=== PATIENT | male | born 1950 | race Caucasian/White ===

== ENCOUNTER 2021-05-30 15:16 | Emergency (ER) | payer MEDICARE ==
[~2021-05-30] VITALS: Ht 180.3 cm; Wt 81.2 kg
[2021-05-30] MEDS ORDERED: TIMOLOL MALEATE5 M2 OP (15:57)
[2021-05-30] MEDS ORDERED: ALENDRONATE SOD70 MG PO (15:57)
[2021-05-30] MEDS ORDERED: AUGMENTIN 875-1 EACH PO (18:03)
== END 2021-05-30 18:13 | disposition home or self-care (01) ==
LOC: ED 15:16
DX: L03.213 Periorbital cellulitis (principal); J32.9 Chronic sinusitis, unspecified; Z79.899 Other long term (current) drug therapy
CPT/HCPCS: 70487; 70488; 80048; 85025; 99284-25; J0295; J1885; J7030; Q9967

== ENCOUNTER 2021-08-24 16:30 | Emergency (ER) | payer MEDICARE ==
[~2021-08-24] VITALS: Ht 180.3 cm; Wt 77.5 kg
[~2021-08-24 16:30] MED LIST: ALENDRONATE SOD70 MG PO; AUGMENTIN 875-1 EACH PO; CLARITIN10 M2 PO; HYDROCODON-ACE1 EAC8 PO; TIMOLOL MALEATE5 M2 OP; VENTOLIN HFA18 GM INH
[2021-08-24] MEDS ORDERED: ASPIR-TRIN325 MG PO (16:50)
== END 2021-08-24 21:30 | disposition short-term general hospital (02) ==
LOC: ED 16:30
DX: H05.011 Cellulitis of right orbit (principal); H57.11 Ocular pain, right eye; M19.90 Unspecified osteoarthritis, unspecified site; Z79.899 Other long term (current) drug therapy
CPT/HCPCS: 36415; 70487; 80053; 83605; 85025; 96375; 99285-25; C9803; J1170; J1885; J2405; J2543; J7030; U0003

== ENCOUNTER 2023-03-03 12:26 | Emergency (ER) | payer MEDICARE ==
[~2023-03-03] VITALS: Ht 177.8 cm; Wt 76.7 kg
--- OUTSIDE RECORDS SUMMARY | ~2023-03-03 | XMS | Continuity of Care Document ---
Demographics + + + | Address | [address] | | | [place] [address] | + + + | Preferred Language | Unknown | + + + | Marital Status | | + + + | Yazidism Affiliation | Unknown | + + + | Race | White | + + + | Ethnic Group | Not or | + + + Author + + + | Author | [facility] | + + + | Organization | [facility] | + + + | Address | [address] | | | [place] [address] | + + + | Phone | | + + + Care Team Providers + + + + | Care Vehicle Glass Technician Name | Role | Phone | + + + + Unavailable | Unavailable | + + + + Unavailable | Unavailable | + + + + Unavailable | Unavailable | + + + + Allergies and Intolerances + + + + + + | date | description | facility | reaction | severity | + + + + + + | (no date) | No Known Drug | [facility] | (no reaction) | (no severity) | | | Allergies | | | | + + + + + + Encounters No information. Functional Status No information. Immunizations No information. Medications + + + + | date | description | facility | + + + + | 2022-12-25 00:00 | Timolol Maleate | [facility] | + + + + | 2023-01-23 00:00 | Timolol Maleate | [facility] | + + + + | 2022-12-25 00:00 | ASPIRIN | [facility] | + + + + | 2023-01-23 00:00 | ASPIRIN | [facility] | + + + + | 2021-05-30 00:00 | AMOXICILLIN/POTASSIUM CLAV | [facility] | | | | | + + + + | 2022-12-25 00:00 | LORATADINE | [facility] | + + + + | 2023-01-23 00:00 | LORATADINE | [facility] | + + + + | 2023-01-23 00:00 | | [facility] | | | SULFAMETHOXAZOLE/TRIMETHOPR | | | | IM DS | | + + + + | 2022-12-25 00:00 | HYDROCODONE | [facility] | | | BIT/ACETAMINOPHEN | | + + + + | 2023-01-23 00:00 | HYDROCODONE | [facility] | | | BIT/ACETAMINOPHEN | | + + + + | 2022-12-25 00:00 | ALBUTEROL SULFATE | [facility] | + + + + | 2023-01-23 00:00 | ALBUTEROL SULFATE | [facility] | + + + + | 2022-12-25 00:00 | ALENDRONATE SODIUM | [facility] | + + + + | 2023-01-23 00:00 | ALENDRONATE SODIUM | [facility] | + + + + Problems + + + + | date | description | facility | + + + + | 2021-08-24 00:00 | Cellulitis of right | [facility] | | | orbital region | | + + + + | 2021-08-24 00:00 | Pain in eye | [facility] | + + + + | 2021-08-24 00:00 | Sinusitis | [facility] | + + + + | 2021-08-24 00:00 | Abscess | [facility] | + + + + | 2021-08-25 07:06:08 | Cellulitis of right orbit | [facility] | [facility] | + + + + | 2022-01-18 08:54 | ENCOUNTER FOR CHANGE OR | [facility] | | | REMOVAL OF SURGICAL WOUND | | | | DRESSING | | + + + + | 2022-07-08 08:50 | NON-PRS CHRONIC ULC UNSP | [facility] | | | PRT OF L LOW LEG W UNSP | | | | SEVERITY | | + + + + | 2022-08-05 08:50 | ENCOUNTER FOR CHANGE OR | [facility] | | | REMOVAL OF NONSURG WOUND | | | | DRESSING | | + + + + | 2022-09-02 08:49 | OTHER CHRONIC | [facility] | | | OSTEOMYELITIS, LEFT TIBIA | | | | AND FIBULA | | + + + + | 2022-10-04 08:46 | OTHER CHRONIC | [facility] | | | OSTEOMYELITIS, LEFT TIBIA | | | | AND FIBULA | | + + + + | 2022-11-07 08:52 | OSTEOMYELITIS, UNSPECIFIED | [facility] | | | | | + + + + | 2022-11-07 08:52 | ENCOUNTER FOR CHANGE OR | [facility] | | | REMOVAL OF NONSURG WOUND | | | | DRESSING | | + + + + | 2022-12-06 08:52 | OTHER CHRONIC | [facility] | | | OSTEOMYELITIS, LEFT TIBIA | | | | AND FIBULA | | + + + + | 2022-12-06 08:52 | ENCOUNTER FOR CHANGE OR | [facility] | | | REMOVAL OF NONSURG WOUND | | | | DRESSING | | + + + + | 2022-12-25 00:00 | Encounter for wound | [facility] | | | re-check | | + + + + | 2022-12-25 10:57 | PAIN IN LEFT FOOT | [facility] | + + + + | 2022-12-25 10:57 | UNSPECIFIED OPEN WOUND, | [facility] | | | LEFT FOOT, SUBSEQUENT ENCO | | + + + + | 2022-12-25 10:57 | EXPOSURE TO OTHER | [facility] | | | SPECIFIED FACTORS, | | | | SUBSEQUENT EN | | + + + + | 2022-12-25 10:57 | ENCOUNTER FOR CHANGE OR | [facility] | | | REMOVAL OF SURGICAL WOUND | | + + + + | 2022-12-25 10:57 | GEOPHYSICAL OBSERVER (CURRENT) USE OF | [facility] | | | [facility] | | + + + + | 2023-01-02 16:08 | CHRONIC OSTEOMYELIT W | [facility] | | | DRAINING SINUS, LE | | + + + + | 2023-01-02 16:08 | ENCOUNTER FOR ADJUSTMENT | [facility] | | | AND MANAGEMENT OF VAD | | + + + + | 2023-01-03 07:56 | ENCOUNTER FOR CHANGE OR | [facility] | | | REMOVAL OF NONSURG WOUND | | | | DRESSING | | + + + + | 2023-01-04 07:56 | CHRONIC OSTEOMYELIT W | [facility] | | | DRAINING SINUS, LEFT TIBIA | | | | A | | + + + + | 2023-01-04 07:56 | UNSPECIFIED OPEN WOUND, | [facility] | | | LEFT ANKLE, SUBSEQUENT | | | | ENCOUNTER | | + + + + | 2023-01-05 07:46 | CHRONIC OSTEOMYELIT W | [facility] | | | DRAINING SINUS, LEFT TIBIA | | | | AND FIBULA | | + + + + | 2023-01-06 07:56 | CHRONIC OSTEOMYELIT W | [facility] | | | DRAINING SINUS, LEFT TIBIA | | | | AND FIBULA | | + + + + | 2023-01-07 07:48 | CHRONIC OSTEOMYELIT W | [facility] | | | DRAINING SINUS, LEFT TIBIA | | | | AND FIBULA | | + + + + | 2023-01-08 07:29 | OTHER CHRONIC | [facility] | | | OSTEOMYELITIS, LEFT HAND | | + + + + | 2023-01-09 07:51 | CHRONIC OSTEOMYELIT W | [facility] | | | DRAINING SINUS, LEFT TIBIA | | | | AND FIBULA | | + + + + | 2023-01-10 07:51 | CHRONIC OSTEOMYELIT W | [facility] | | | DRAINING SINUS, LEFT TIBIA | | | | AND FIBULA | | + + + + | 2023-01-11 07:51 | CHRONIC OSTEOMYELIT W | [facility] | | | DRAINING SINUS, LEFT TIBIA | | | | AND FIBULA | | + + + + | 2023-01-12 07:48 | CHRONIC OSTEOMYELIT W | [facility] | | | DRAINING SINUS, LEFT TIBIA | | | | AND FIBULA | | + + + + | 2023-01-13 07:55 | CHRONIC OSTEOMYELIT W | [facility] | | | DRAINING SINUS, LEFT TIBIA | | | | A | | + + + + | 2023-01-13 07:55 | UNSPECIFIED OPEN WOUND, | [facility] | | | LEFT ANKLE, INITIAL | | | | ENCOUNTER | | + + + + | 2023-01-14 07:48 | CHRONIC OSTEOMYELIT W | [facility] | | | DRAINING SINUS, LEFT TIBIA | | | | AND FIBULA | | + + + + | 2023-01-15 07:54 | CHRONIC OSTEOMYELIT W | [facility] | | | DRAINING SINUS, LEFT TIBIA | | | | A | | + + + + | 2023-01-15 07:54 | UNSPECIFIED OPEN WOUND, | [facility] | | | LEFT ANKLE, INITIAL | | | | ENCOUNTER | | + + + + | 2023-01-16 07:51 | CHRONIC OSTEOMYELIT W | [facility] | | | DRAINING SINUS, LEFT TIBIA | | | | AND FIBULA | | + + + + | 2023-01-16 07:51 | UNSPECIFIED OPEN WOUND, | [facility] | | | LEFT ANKLE, INITIAL ENCOUN | | + + + + | 2023-01-17 07:55 | CHRONIC OSTEOMYELIT W | [facility] | | | DRAINING SINUS, LEFT TIBIA | | | | AND FIBULA | | + + + + | 2023-01-17 07:55 | UNSPECIFIED OPEN WOUND, | [facility] | | | LEFT ANKLE, INITIAL ENCOUN | | + + + + | 2023-01-18 07:44 | CHRONIC OSTEOMYELIT W | [facility] | | | DRAINING SINUS, LEFT TIBIA | | | | AND FIBULA | | + + + + | 2023-01-18 07:44 | UNSPECIFIED OPEN WOUND, | [facility] | | | LEFT ANKLE, INITIAL ENCOUN | | + + + + | 2023-01-19 07:50 | CHRONIC OSTEOMYELIT W | [facility] | | | DRAINING SINUS, LEFT TIBIA | | | | AND FIBULA | | + + + + | 2023-01-19 07:50 | UNSPECIFIED OPEN WOUND, | [facility] | | | LEFT ANKLE, INITIAL ENCOUN | | + + + + | 2023-01-20 07:54 | OTHER DISORDERS OF LUNG | [facility] | + + + + | 2023-01-20 07:54 | ENCOUNTER FOR ADJUSTMENT | [facility] | | | [facility]NAG[facility] | | + + + + | 2023-01-21 07:48 | CHRONIC OSTEOMYELIT W | [facility] | | | DRAINING SINUS, LEFT TIBIA | | | | AND FIBULA | | + + + + | 2023-01-22 07:52 | CHRONIC OSTEOMYELIT W | [facility] | | | DRAINING SINUS, LEFT TIBIA | | | | AND FIBULA | | + + + + | 2023-01-23 00:00 | Superficial venous | [facility] | | | thrombosis of upper | | | | extremity | | + + + + | 2023-01-23 00:00 | Cervical radicular pain | [facility] | + + + + | 2023-01-23 00:00 | Interscapular pain | [facility] | + + + + | 2023-01-23 07:48 | CHRONIC OSTEOMYELIT W | [facility] | | | DRAINING SINUS, LEFT TIBIA | | | | AND FIBULA | | + + + + | 2023-01-23 07:48 | UNSPECIFIED OPEN WOUND, | [facility] | | | LEFT ANKLE, INITIAL ENCOUN | | + + + + | 2023-01-23 08:20 | ACUTE EMBOLISM AND THOMBOS | [facility] | | | OF SUPERFIC VEINS OF R | | + + + + | 2023-01-23 08:20 | PAIN IN RIGHT SHOULDER | [facility] | + + + + | 2023-01-23 08:20 | RADICULOPATHY, CERVICAL | [facility] | | | REGION | | + + + + | 2023-01-23 08:20 | OSTEOMYELITIS, UNSPECIFIED | [facility] | | | | | + + + + | 2023-01-23 08:20 | 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 | | + + + + | 2023-01-25 08:00 | CHRONIC OSTEOMYELIT W | [facility] | | | DRAINING SINUS, LEFT TIBIA | | | | AND FIBULA | | + + + + | 2023-01-25 08:00 | UNSPECIFIED OPEN WOUND, | [facility] | | | LEFT ANKLE, INITIAL ENCOUN | | + + + + | 2023-01-27 07:52 | CHRONIC OSTEOMYELIT W | [facility] | | | DRAINING SINUS, LEFT TIBIA | | | | A | | + + + + | 2023-01-27 07:52 | UNSPECIFIED OPEN WOUND, | [facility] | | | LEFT ANKLE, INITIAL | | | | ENCOUNTER | | + + + + | 2023-01-30 07:56 | CHRONIC OSTEOMYELIT W | [facility] | | | DRAINING SINUS, LEFT TIBIA | | | | A | | + + + + | 2023-01-30 07:56 | UNSPECIFIED OPEN WOUND, | [facility] | | | LEFT ANKLE, INITIAL | | | | ENCOUNTER | | + + + + | 2023-02-01 07:48 | CHRONIC OSTEOMYELIT W | [facility] | | | DRAINING SINUS, LEFT TIBIA | | | | AND FIBULA | | + + + + | 2023-02-03 07:51 | CHRONIC OSTEOMYELIT W | [facility] | | | DRAINING SINUS, LEFT TIBIA | | | | A | | + + + + | 2023-02-03 07:51 | UNSPECIFIED OPEN WOUND, | [facility] | | | LEFT ANKLE, SUBSEQUENT | | | | ENCOUNTER | | + + + + | 2023-02-06 07:56 | CHRONIC OSTEOMYELIT W | [facility] | | | DRAINING SINUS, LEFT TIBIA | | | | AND FIBULA | | + + + + | 2023-02-06 07:56 | UNSPECIFIED OPEN WOUND, | [facility] | | | LEFT ANKLE, SUBSEQUENT ENC | | + + + + | 2023-02-08 07:50 | CHRONIC OSTEOMYELIT W | [facility] | | | DRAINING SINUS, LEFT TIBIA | | | | AND FIBULA | | + + + + | 2023-02-10 07:49 | CHRONIC OSTEOMYELIT W | [facility] | | | DRAINING SINUS, LEFT TIBIA | | | | A | | + + + + | 2023-02-10 07:49 | UNSPECIFIED OPEN WOUND, | [facility] | | | LEFT ANKLE, SUBSEQUENT | | | | ENCOUNTER | | + + + + | 2023-02-13 07:48 | CHRONIC OSTEOMYELIT W | [facility] | | | DRAINING SINUS, LEFT TIBIA | | | | AND FIBULA | | + + + + | 2023-02-15 07:52 | CHRONIC OSTEOMYELIT W | [facility] | | | DRAINING SINUS, LEFT TIBIA | | | | AND FIBULA | | + + + + | 2023-02-17 07:49 | CHRONIC OSTEOMYELIT W | [facility] | | | DRAINING SINUS, LEFT TIBIA | | | | AND FIBULA | | + + + + | 2023-02-20 07:54 | CHRONIC OSTEOMYELIT W | [facility] | | | DRAINING SINUS, LEFT TIBIA | | | | A | | + + + + | 2023-02-20 07:54 | UNSPECIFIED OPEN WOUND, | [facility] | | | LEFT ANKLE, INITIAL | | | | ENCOUNTER | | + + + + | 2023-02-24 07:52 | CHRONIC OSTEOMYELIT W | [facility] | | | DRAINING SINUS, LEFT TIBIA | | | | A | | + + + + | 2023-02-24 07:52 | UNSPECIFIED OPEN WOUND, | [facility] | | | LEFT ANKLE, SUBSEQUENT | | | | ENCOUNTER | | + + + + Procedures No information. Results/Labs +--------+--------+ +---------+--------+---------+ | test | date | facility | value | unit | notes | +--------+--------+ +---------+--------+---------+ + + | Result panel 1 | + + + + + +-------+ + + | | 2023-01-05 | [facility] | 8.5 | (missing) | (missing) | | (unavailable [facility] | | | + + + +-------+ + + + + | Result panel 2 | + + + + + + + + + | | 2023-01-05 | [facility] | 01/04/2023 | (missing) | (missing) | | (unavailable | [facility]:07 [facility] | | | | + + + + + + + + + | Result panel 3 | + + + + + +------+ + + | | 2023-01-19 | [facility] | 96 | (missing) | (missing) | | (unavailable | [facility]56[facility]07 [facility] | | | | + + + +------+ + + + + | Result panel 4 | + + + + + +-------+ + + | | 2023-01-23 | [facility] | 8.4 | (missing) | (missing) | | (unavailable | [facility] | | | | + + + +-------+ + + + + | Result panel 5 | + + + + + +--------+ + + | | 2023-01-23 | [facility] | 62.3 | (missing) | (missing) | | (unavailable | [facility] | | | | + + + +--------+ + + + + | Result panel 6 | + + + + + +--------+ + + | | 2023-01-23 | [facility] | 21.8 | (missing) | (missing) | | (unavailable | [facility] | | | | + + + +--------+ + + + + | Result panel 7 | + + + + + +-------+ + + | | 2023-01-23 | [facility] | 9.2 | (missing) | (missing) | | (unavailable | [facility] | | | | + + + +-------+ + + + + | Result panel 8 | + + + + + +-------+ + + | | 2023-01-23 | [facility] | 5.2 | (missing) | (missing) | | (unavailable | [facility] | | | | + + + +-------+ + + + + | Result panel 9 | + + + + + +-------+ + + | | 2023-01-23 | [facility] | 1.5 | (missing) | (missing) | | (unavailable | [facility] | | | + + + +-------+ + + + + | Result panel 10 | + + + + + +------+---------+ + | | 2023-01-23 | [facility] | 84 | mg/dL | (missing) | | (unavailable | [facility] | | | | + + + +------+---------+ + + + | Result panel 11 | + + + + + +------+---------+ + | | 2023-01-23 | [facility] | 11 | mg/dL | (missing) | | (unavailable | [facility] | | | + + + +------+---------+ + + + | Result panel 12 | + + + + + +--------+---------+ + | | 2023-01-23 | [facility] | 0.95 | mg/dL | (missing) | | (unavailable | [facility] | | | | + + + +--------+---------+ + + + | Result panel 13 | + + + + + +------+ + + | | 2023-01-23 | [facility] | 85 | (missing) | (missing) | | (unavailable | [facility] | | | | + + + +------+ + + + + | Result panel 14 | + + + + + +---------+ + + | | 2023-01-23 | [facility] | 11.57 | (missing) | (missing) | | (unavailable | [facility] | | | | + + + +---------+ + + + + | Result panel 15 | + + + + + +--------+ + + | | 2023-01-23 | [facility] | 4.63 | (missing) | (missing) | | (unavailable | [facility] | | | | + + + +--------+ + + + + | Result panel 16 | + + + + + +-------+ + + | | 2023-01-23 | [facility] | 135 | (missing) | (missing) | | (unavailable | [facility] | | | + + + +-------+ + + + + | Result panel 17 | + + + + + +-------+ + + | | 2023-01-23 | [facility] | 3.9 | (missing) | (missing) | | (unavailable | [facility] | | | | + + + +-------+ + + + + | Result panel 18 | + + + + + +-------+ + + | | 2023-01-23 | [facility] | 101 | (missing) | (missing) | | (unavailable | [facility] | | | + + + +-------+ + + + + | Result panel 19 | + + + + + +------+ + + | | 2023-01-23 | [facility] | 29 | (missing) | (missing) | | (unavailable | [facility] | | | | + + + +------+ + + + + | Result panel 20 | + + + + + +-------+ + + | | 2023-01-23 | [facility] | 8.9 | (missing) | (missing) | | (unavailable | [facility] | | | | + + + +-------+ + + + + | Result panel 21 | + + + + + +-------+---------+ + | | 2023-01-23 | [facility] | 8.8 | mg/dL | (missing) | | (unavailable | [facility] | | | | + + + +-------+---------+ + + + | Result panel 22 | + + + + + +-------+ + + | | 2023-01-23 | [facility] | 6.9 | (missing) | (missing) | | (unavailable | [facility] | | | | + + + +-------+ + + + + | Result panel 23 | + + + + + +-------+ + + | | 2023-01-23 | [facility] | 3.1 | (missing) | (missing) | | (unavailable | [facility] | | | | + + + +-------+ + + + + | Result panel 24 | + + + + + +-------+ + + | | 2023-01-23 | [facility] | 3.8 | (missing) | (missing) | | (unavailable | [facility] | | | | + + + +-------+ + + + + | Result panel 25 | + + + + + +--------+ + + | | 2023-01-23 | [facility] | 0.82 | (missing) | (missing) | | (unavailable | [facility] | | | | + + + +--------+ + + + + | Result panel 26 | + + + + + +--------+ + + | | 2023-01-23 | [facility] | 14.4 | (missing) | (missing) | | (unavailable | [facility] | | | + + + +--------+ + + + + | Result panel 27 | + + + + + +-------+ + + | | 2023-01-23 | [facility] | 0.5 | (missing) | (missing) | | (unavailable | [facility] | | | + + + +-------+ + + + + | Result panel 28 | + + + + + +------+ + + | | 2023-01-23 | [facility] | 16 | (missing) | (missing) | | (unavailable | [facility] | | | + + + +------+ + + + + | Result panel 29 | + + + + + +------+ + + | | 2023-01-23 | [facility] | 24 | (missing) | (missing) | | (unavailable | [facility] | | | | + + + +------+ + + + + | Result panel 30 | + + + + + +------+ + + | | 2023-01-23 | [facility] | 84 | (missing) | (missing) | | (unavailable | [facility] | | | | + + + +------+ + + + + | Result panel 31 | + + + + + +-------+ + + | | 2023-01-23 | [facility] | 8.0 | (missing) | (missing) | | (unavailable | [facility] | | | | + + + +-------+ + + + + | Result panel 32 | + + + + + +--------+ + + | | 2023-01-23 | [facility] | 42.0 | (missing) | (missing) | | (unavailable | [facility] | | | | + + + +--------+ + + + + | Result panel 33 | + + + + + +--------+ + + | | 2023-01-23 | [facility] | 90.8 | (missing) | (missing) | | (unavailable | [facility] | | | | + + + +--------+ + + + + | Result panel 34 | + + + + + +--------+ + + | | 2023-01-23 | [facility] | 31.1 | (missing) | (missing) | | (unavailable | [facility] | | | + + + +--------+ + + + + | Result panel 35 | + + + + + +--------+ + + | | 2023-01-23 | [facility] | 34.2 | (missing) | (missing) | | (unavailable | [facility] | | | | + + + +--------+ + + + + | Result panel 36 | + + + + + +--------+ + + | | 2023-01-23 | [facility] | 14.6 | (missing) | (missing) | | (unavailable | [facility] | | | | + + + +--------+ + + + + | Result panel 37 | + + + + + +-------+ + + | | 2023-01-23 | [facility] | 306 | (missing) | (missing) | | (unavailable | [facility] | | | | + + + +-------+ + + Social History + + + + | date | description | facility | + + + + | 2022-12-25 00:00 | Unknown if ever smoked | [facility] | + + + + | 2023-01-23 00:00 | Unknown if ever smoked | [facility] | + + + + Vital Signs + + + +---------+ | date | measurement | value | units | + + + +---------+ | 2022-12-25 00:00 | BMI | 22.7 | kg/m2 | + + + +---------+ | 2022-12-25 00:00 | BP_diastolic | 76 | mmHg | + + + +---------+ | 2022-12-25 00:00 | BP_systolic | 128 | mmHg | + + + +---------+ | 2022-12-25 00:00 | heart_rate | 51 | /min | + + + +---------+ | 2022-12-25 00:00 | height_metric | 180.34 | cm | + + + +---------+ | 2022-12-25 00:00 | height_standard | 71 | in | + + + +---------+ | 2022-12-25 00:00 | o2_saturation | 99 | % | + + + +---------+ | 2022-12-25 00:00 | respiration_rate | 16 | /min | + + + +---------+ | 2022-12-25 00:00 | temperature_metric | 36.78 | C | | | | | | + + + +---------+ | 2022-12-25 00:00 | | 98.2 | F | | | temperature_standar | | | | | d | | | + + + +---------+ | 2022-12-25 00:00 | weight_metric | 73.94 | kg | + + + +---------+ | 2022-12-25 00:00 | weight_standard | 163 | lb | + + + +---------+ | 2022-12-25 00:00 | weight_standard | 163.01 | lb | + + + +---------+ | 2023-01-03 00:00 | BMI | 23.4 | kg/m2 | + + + +---------+ | 2023-01-03 00:00 | height_metric | 177.8 | cm | + + + +---------+ | 2023-01-03 00:00 | height_standard | 70 | in | + + + +---------+ | 2023-01-03 00:00 | weight_metric | 74.1 | kg | + + + +---------+ | 2023-01-03 00:00 | weight_standard | 163.36 | lb | + + + +---------+ | 2023-01-07 00:00 | BP_diastolic | 66 | mmHg | + + + +---------+ | 2023-01-07 00:00 | BP_systolic | 115 | mmHg | + + + +---------+ | 2023-01-07 00:00 | heart_rate | 57 | /min | + + + +---------+ | 2023-01-07 00:00 | o2_saturation | 98 | % | + + + +---------+ | 2023-01-07 00:00 | respiration_rate | 18 | /min | + + + +---------+ | 2023-01-07 00:00 | temperature_metric | 36.44 | C | | | | | | + + + +---------+ | 2023-01-07 00:00 | | 97.6 | F | | | temperature_standar | | | | | d | | | + + + +---------+ | 2023-01-08 00:00 | BP_diastolic | 64 | mmHg | + + + +---------+ | 2023-01-08 00:00 | BP_systolic | 135 | mmHg | + + + +---------+ | 2023-01-08 00:00 | heart_rate | 53 | /min | + + + +---------+ | 2023-01-08 00:00 | o2_saturation | 99 | % | + + + +---------+ | 2023-01-08 00:00 | respiration_rate | 16 | /min | + + + +---------+ | 2023-01-08 00:00 | temperature_metric | 36.67 | C | | | | | | + + + +---------+ | 2023-01-08 00:00 | | 98 | F | | | temperature_standar | | | | | d | | | + + + +---------+ | 2023-01-09 00:00 | BP_diastolic | 68 | mmHg | + + + +---------+ | 2023-01-09 00:00 | BP_systolic | 121 | mmHg | + + + +---------+ | 2023-01-09 00:00 | heart_rate | 53 | /min | + + + +---------+ | 2023-01-09 00:00 | o2_saturation | 96 | % | + + + +---------+ | 2023-01-09 00:00 | respiration_rate | 16 | /min | + + + +---------+ | 2023-01-09 00:00 | temperature_metric | 36.78 | C | | | | | | + + + +---------+ | 2023-01-09 00:00 | | 98.2 | F | | | temperature_standar | | | | | d | | | + + + +---------+ | 2023-01-22 00:00 | BP_diastolic | 70 | mmHg | + + + +---------+ | 2023-01-22 00:00 | BP_systolic | 139 | mmHg | + + + +---------+ | 2023-01-22 00:00 | heart_rate | 53 | /min | + + + +---------+ | 2023-01-22 00:00 | o2_saturation | 100 | % | + + + +---------+ | 2023-01-22 00:00 | respiration_rate | 18 | /min | + + + +---------+ | 2023-01-22 00:00 | temperature_metric | 36.22 | C | | | | | | + + + +---------+ | 2023-01-22 00:00 | | 97.2 | F | | | temperature_standar | | | | | d | | | + + + +---------+ | 2023-01-23 00:00 | BMI | 24.3 | kg/m2 | + + + +---------+ | 2023-01-23 00:00 | BP_diastolic | 70 | mmHg | + + + +---------+ | 2023-01-23 00:00 | BP_systolic | 155 | mmHg | + + + +---------+ | 2023-01-23 00:00 | heart_rate | 58 | /min | + + + +---------+ | 2023-01-23 00:00 | height_metric | 177.8 | cm | + + + +---------+ | 2023-01-23 00:00 | height_standard | 70 | in | + + + +---------+ | 2023-01-23 00:00 | o2_saturation | 97 | % | + + + +---------+ | 2023-01-23 00:00 | respiration_rate | 17 | /min | + + + +---------+ | 2023-01-23 00:00 | temperature_metric | 36.61 | C | | | | | | + + + +---------+ | 2023-01-23 00:00 | | 97.9 | F | | | temperature_standar | | | | | d | | | + + + +---------+ | 2023-01-23 00:00 | weight_metric | 76.9 | kg | + + + +---------+ | 2023-01-23 00:00 | weight_standard | 169.54 | lb | + + + +---------+"
--- OUTSIDE RECORDS SUMMARY | ~2023-03-03 | XMS | Continuity of Care Document ---
Demographics + + + | Address | [address] | | | [place] [address] | + + + | Preferred Language | Unknown | + + + | Marital Status | | + + + | Zoroastrianism Affiliation | Unknown | + + + | Race | White | + + + | Ethnic Group | Not or | + + + Author + + + | Author | [facility] | + + + | Organization | [facility] | + + + | Address | [address] | | | [place] [address] | + + + | Phone | | + + + Care Team Providers + + + + | Care Architect Manager Name | Role | Phone | + [...] | 2022-12-25 00:00 | Timolol Maleate | [facility] | + + + + | 2023-01-23 00:00 | Timolol Maleate | [facility] | + + + + | 2022-12-25 00:00 | ASPIRIN | [facility] | + + + + | 2023-01-23 00:00 | ASPIRIN | [facility] | + + + + | 2021-05-30 00:00 | AMOXICILLIN/POTASSIUM CLAV | [facility] | | | | | + + + + | 2022-12-25 00:00 | LORATADINE | [facility] | + + + + | 2023-01-23 00:00 | LORATADINE | [facility] | + + + + | 2023-01-23 00:00 | | [facility] | | | SULFAMETHOXAZOLE/TRIMETHOPR | | | | IM DS | | + + + + | 2022-12-25 00:00 | HYDROCODONE | [facility] | | | BIT/ACETAMINOPHEN | | + + + + | 2023-01-23 00:00 | HYDROCODONE | [facility] | | | BIT/ACETAMINOPHEN | | + + + + | 2022-12-25 00:00 | ALBUTEROL SULFATE | [facility] | + + + + | 2023-01-23 00:00 | ALBUTEROL SULFATE | [facility] | + + + + | 2022-12-25 00:00 | ALENDRONATE SODIUM | [facility] | + + + + | 2023-01-23 00:00 | ALENDRONATE SODIUM | [facility] | + + + + Problems + + + + | date | description | facility | + + + + | 2021-08-24 00:00 | Cellulitis of right | [facility] | | | orbital region | | + + + + | 2021-08-24 00:00 | Pain in eye | [facility] | + + + + | 2021-08-24 00:00 | Sinusitis | [facility] | + + + + | 2021-08-24 00:00 | Abscess | [facility] | + + + + | 2021-08-25 [...] 2022-12-25 00:00 | Encounter for wound | 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 | | | thrombosis of upper | | | | extremity | | + + + + | 2023-01-23 00:00 | Cervical radicular pain | [facility] | + + + + | 2023-01-23 00:00 | Interscapular pain | [facility] | + + + + | 2023-01-23 [...] 00:00 | Unknown if ever smoked | [facility] | + + + + | 2023-01-23 00:00 | Unknown if ever smoked | [facility] | + + + + Vital Signs [...]
[~2023-03-03 12:26] MED LIST changes: +ASPIR-TRIN325 MG PO; +BACTRIM DS TAB1 EACH PO
[2023-03-03 14:51] LABS: HEMATOCRIT 37.4 % (35.0-50.0); HEMOGLOBIN 12.5 g/dL (12.0-18.0); MCH 30.5 (27-36); MCHC 33.5 g/dl (30-36); MCV 90.8 fl (81-99); PLATELET COUNT 509 K/uL (140-440); RBC 4.11 M/ul (4.3-5.7); RDW 14.7 (10.5-15.0)
[2023-03-03 15:05] LABS: ALBUMIN 2.4 g/dL (3.4-5.0); ALBUMIN/GLOBULIN RATIO 0.55 (1.1-2.4); BILIRUBIN, TOTAL 0.5 ng/dL (0.2-1.0); BUN/CREATININE RATIO 13.18 (6.0-28.6); CALCIUM 8.5 mg/dL (8.5-10.1); CREATININE, SERUM 0.91 mg/dL (0.70-1.30); PROTEIN, TOTAL 6.8 g/dL (6.4-8.2)
[2023-03-03 15:11] LABS: BASOPHILS, MANUAL DIFF 1; EOSINOPHILS, MANUAL DIFF 1; LYMPHOCYTES, MANUAL DIFF 17; MONOCYTES, MANUAL DIFF 8; NEUTROPHILS, MANUAL DIFF 72
[2023-03-03] MEDS ORDERED: BACTRIM DS TAB1 EACH PO (15:41)
[2023-03-03] MEDS ORDERED: HYDROCODON-ACE1 EA10 PO (15:44)
[2023-03-03 15:53] VITALS: BP 105/68
== END 2023-03-03 16:02 | disposition home or self-care (01) ==
LOC: ED 12:26
PROVIDERS: Emergency Medicine
DX: L03.116 Cellulitis of left lower limb (principal); S81.802A Unspecified open wound, left lower leg, initial encounter; X58.XXXA Exposure to other specified factors, initial encounter; Z95.828 Presence of other vascular implants and grafts
CPT/HCPCS: 36415; 80053; 85025; 99283; A9270

== ENCOUNTER 2023-07-19 09:13 | Emergency (ER) | payer MEDICARE ==
[~2023-07-19] VITALS: Ht 172.7 cm; Wt 76.7 kg
--- NOTE | ~2023-07-19 | EKG ---
[facility] [address] [place], [place] [address] Draft EK completed, results pending confirmation PATIENT NAME: AGUSTIN CALLES JOHN Electrocardiogram DATE OF : 48 PHYSICIAN: PRELIMINARY REPORT #: [id number] REPORT IS CONFIDENTIAL AND NOT TO BE RELEASED WITHOUT AUTHORIZATION
[~2023-07-19 09:13] MED LIST changes: +HYDROCODON-ACE1 EA10 PO
[2023-07-19 09:35] LABS: BASOPHILS 0.8 % (0-2); EOSINOPHILS 1.4 % (0-6); HEMATOCRIT 42.5 % (35.0-50.0); HEMOGLOBIN 14.5 g/dL (12.0-18.0); LYMPHOCYTES 25.8 % (24-44); MCH 29.5 (27-36); MCHC 34.1 g/dl (30-36); MCV 86.4 fl (81-99); MONOCYTES 10.6 % (0-12); NEUTROPHILS 61.4 % (39-80); PLATELET COUNT 310 K/uL (140-440); RBC 4.92 M/ul (4.3-5.7); RDW 15.6 (10.5-15.0)
[2023-07-19 09:52] LABS: ALBUMIN 3.1 g/dL (3.4-5.0); ALBUMIN/GLOBULIN RATIO 0.67 (1.1-2.4); ANION GAP 12.3 (7-21); BILIRUBIN, TOTAL 0.6 ng/dL (0.2-1.0); BUN/CREATININE RATIO 12.26 (6.0-28.6); CALCIUM 8.7 mg/dL (8.5-10.1); CREATININE, SERUM 1.06 mg/dL (0.70-1.30); MAGNESIUM 2.1 mg/dL (1.8-2.4); POTASSIUM 4.3 mmol/L (3.5-5.1); PROTEIN, TOTAL 7.7 g/dL (6.4-8.2)
[2023-07-19] MEDS ORDERED: NAPROSYN500 MG PO (13:06)
[2023-07-19 13:24] VITALS: BP 161/99
== END 2023-07-19 13:25 | disposition home or self-care (01) ==
LOC: ED 09:13
PROVIDERS: Emergency Medicine
DX: R07.89 Other chest pain (principal); Z79.899 Other long term (current) drug therapy
CPT/HCPCS: 36415; 71045; 71260; 80053; 83735; 84484; 85025; 93005; 93010; 99285-25; A9270; Q9967

== ENCOUNTER 2023-08-12 15:02 | Emergency (ER) | payer MEDICARE ==
[~2023-08-12] VITALS: Ht 172.7 cm; Wt 80.6 kg
[~2023-08-12 15:02] MED LIST changes: +NAPROSYN500 MG PO
--- OUTSIDE RECORDS SUMMARY | 2023-08-12 15:04 | XMS ---
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 Artie has no Care Guidelines for this patient. Nette VISIT COUNT (12 MO[address] [facility] TOTAL 5 NOTE: Visits indicate total known visits. ED/C VISIT TRACKING (12 MO.) 08/12/2023 15:[address] [facility] TYPE: Emergency COMPLAINT: - PROBLEMS WITH WOUND VAC 07/19/2023 09:14 [facility] TYPE: Emergency COMPLAINT: - BACK/CHEST PAIN DIAGNOSES: - Other chest pain - Other half-way (current) drug therapy 03/03/2023 12:28 [facility] TYPE: Emergency COMPLAINT: - L LEG WOUND CARE DIAGNOSES: - Cellulitis of left lower limb - Exposure to other specified factors, initial encounter - Presence of other vascular implants and grafts - Unspecified open wound, left lower leg, initial encounter 01/23/2023 08:20 [facility] TYPE: Emergency COMPLAINT: - R SHOULDER/NECK PAIN, PIC LINE DIAGNOSES: - Acute embolism and thrombosis of superficial veins of right upper extremity - Osteomyelitis, unspecified - Pain in right shoulder - Presence of cardiac and vascular implant and graft, unspecified - Radiculopathy, cervical region 12/25/2022 10:[address] [facility] [place] TYPE: Emergency COMPLAINT: - WOUND CARE DIAGNOSES: - Encounter for change or removal of surgical wound dressing - Exposure to other specified factors, subsequent encounter - retirement (current) use of aspirin - Pain in left foot - Unspecified open wound, left foot, subsequent encounter INPATIENT VISIT TRACKING (12 MO.) No inpatient visits to display in this time frame [email or web address]
[2023-08-12] MEDS ORDERED: HYDROCODON-ACE1 EA10 PO (15:20)
[2023-08-12 17:08] VITALS: BP 148/92
== END 2023-08-12 17:08 | disposition home or self-care (01) ==
LOC: ED 15:02
DX: T85.9XXA Unspecified complication of internal prosthetic device, implant and graft, initial encounter (principal); Y82.8 Other medical devices associated with adverse incidents; Z79.899 Other long term (current) drug therapy
CPT/HCPCS: 99282

== ENCOUNTER 2024-08-14 10:20 | Emergency (ER) | payer MEDICARE ==
[~2024-08-14] VITALS: Ht 172.7 cm; Wt 76.2 kg
[~2024-08-14 10:20] MED LIST changes: +CIPROFLOXACIN500 MG PO; +CYCLOBENZAPRINE10 MG PO
[2024-08-14] MEDS ORDERED: TAMSULOSIN HCL0.4 MG PO (10:32)
[2024-08-14] MEDS ORDERED: VENTOLIN HFA18 GM INH (10:33)
[2024-08-14] MEDS ORDERED: OXYCODONE HCL 5 MG TAB PO ONE (11:00)
[2024-08-14] MEDS ORDERED: KETOROLAC TROMETHAMINE 15 MG/ML VIAL IM ONE (11:00)
[2024-08-14] MEDS ORDERED: OXYCODONE HCL5 MG PO (11:04)
[2024-08-14 11:30] VITALS: BP 148/79
== END 2024-08-14 11:32 | disposition home or self-care (01) ==
LOC: ED 10:20
DX: M48.56XA Collapsed vertebra, not elsewhere classified, lumbar region, initial encounter for fracture (principal); Z79.899 Other long term (current) drug therapy
CPT/HCPCS: 96372; 99283; A9270; J1885